=== PATIENT | female | born 1990 | race Caucasian/White ===

== ENCOUNTER 2016-07-16 20:43 | Inpatient (IN) ==
[2016-07-16] MEDS ORDERED: AMBIEN PO PRN (20:47)
[2016-07-16] MEDS ORDERED: KEFZOL 1 GM/D5W 50 ML IV PRN (20:47)
[2016-07-16] MEDS ORDERED: PEPCID PO PRN (20:47)
[2016-07-16] MEDS ORDERED: BRETHINE SUBQ PRN (20:47)
[2016-07-16] MEDS ORDERED: TYLENOL PO PRN (20:47)
[2016-07-16] MEDS ORDERED: STADOL IV PRN ×3 (20:47)
[2016-07-16] MEDS ORDERED: ZOFRAN IV PRN (20:47)
[2016-07-16] MEDS ORDERED: PEPCID IV PRN (20:47)
[2016-07-16] MEDS ORDERED: REGLAN PO ONE (20:47)
[2016-07-16] MEDS ORDERED: PEPCID PO ONE (20:47)
[2016-07-16] MEDS ORDERED: AMPICILLIN 2 GM/NS 100 ML IV ONE (21:30)
[2016-07-16] MEDS: LR 1,000 ML IV SCH (21:30)
[2016-07-16] MEDS ORDERED: CYTOTEC PO ONE (22:30)
[2016-07-16 22:43] LABS: URINE SOURCE VOIDED
[2016-07-16 22:43] LABS: MANUAL DIFF NEEDED? NO
[2016-07-16 22:51] LABS: BASO% 0.2 % (0.0-0.8); EOS# 0.19 X1000 (0.0-0.7); EOS% 1.6 % (0.0-10.0); HEMATOCRIT 37.9 % (37.0-47.0); HEMOGLOBIN 12.4 g/dL (12.0-16.0); IMM GRAN# 0.04 X1000 (0.0-0.04); IMM GRAN% 0.3 % (0.0-0.5); LYMPH# 1.78 X1000 (1.2-3.4); LYMPH% 15.3 % (20.5-51.1); MCH 27.7 PG (27-31); MCHC 32.7 g/dL (33-37); MCV 84.8 FL (81-99); MONO# 0.86 X1000 (0.11-0.59); MONO% 7.4 % (1.7-9.3); MPV 10.7 FL (7.4-10.4); NEUT% 75.2 % (42.2-75.2); PLT 229 X1000 (130-400); RBC 4.47 XMIL (4.2-5.4)
[2016-07-16] MEDS ORDERED: FENTANYL-BUPIV-NS 2 MCG-0.1% 200 ML EPIDURAL SCH (23:00)
[2016-07-16 23:03] LABS: BILIRUBIN URINE NEGATIVE (NEGATIVE); BLOOD URINE NEGATIVE (NEGATIVE); CLARITY CLEAR (CLEAR); COLOR YELLOW; GLUCOSE URINE NEGATIVE (NEGATIVE); LEUKOCYTES URINE 2+ (NEGATIVE); NITRITE URINE NEGATIVE (NEGATIVE); PH URINE 6.5; PROTEIN URINE NEGATIVE (NEGATIVE); SP GRAVITY URINE 1.005; UR AMPHETAMINES QUAL NONE DETECTED (NONE DETECT); UR BARBITUATES QUAL NONE DETECTED (NONE DETECT); UR BENZODIAZEPIN QUAL NONE DETECTED (NONE DETECT); UR CANNABINOIDS QUAL NONE DETECTED (NONE DETECT); UR COCAINE QUAL NONE DETECTED (NONE DETECT); UR MDMA QUAL NONE DETECTED (NONE DETECT); UR METHADONE QUAL NONE DETECTED (NONE DETECT); UR METHAMPHETAMINE QUAL NONE DETECTED (NONE DETECT); UR OPIATES QUAL NONE DETECTED (NONE DETECT); UR OXYCODONE QUAL NONE DETECTED (NONE DETECT); UR PCP QUAL NONE DETECTED (NONE DETECT); UR TCA QUAL NONE DETECTED (NONE DETECT); UROBILINOGEN URINE NORMAL
[2016-07-17] MEDS ORDERED: MARCAINE 0.25% PF INJ PRN (00:04)
[2016-07-17] MEDS: AMPICILLIN 1 GM/NS 50 ML IV SCH ×4 (02:17→14:34)
[2016-07-17] MEDS: CYTOTEC PO SCH ×2 (02:28→07:27)
[2016-07-17] MEDS ORDERED: PITOCIN 30 UNITS/LR 500 ML IV SCH (07:00)
[2016-07-17] MEDS: LR 1,000 ML IV SCH ×3 (07:04→12:40)
[2016-07-17] MEDS ORDERED: MARCAINE 0.25% PF INJ ONE (09:15)
[2016-07-17] MEDS ORDERED: CLINDAMYCIN 900 MG/NS 50 ML IV ONE (17:30)
[2016-07-17] MEDS ORDERED: XYLOCAINE-MPF 2% ONE (17:50)
[2016-07-17] MEDS ORDERED: FENTANYL ONE (17:50)
[2016-07-17] MEDS ORDERED: PITOCIN ONE (17:50)
[2016-07-17] MEDS ORDERED: DURAMORPH ONE (17:51)
[2016-07-17] MEDS ORDERED: HEMABATE ONE (17:51)
[2016-07-17] MEDS ORDERED: METHERGINE ONE (17:52)
[2016-07-17] MEDS ORDERED: BICITRA PO ONE (18:00)
[2016-07-17] MEDS ORDERED: REGLAN IV ONE (18:00)
[2016-07-17] MEDS ORDERED: PEPCID IV ONE (18:00)
[2016-07-17] MEDS ORDERED: PITOCIN 20 UNITS/LR 1,000 ML ONE (18:06)
--- NOTE | 2016-07-17 18:36 | HISTORY AND PHYSICAL ---
HISTORY: Shelby is a 25-year-old white female, 1, para 0, whose estimated gestational age is 40 and 4/7 weeks. She presents to Labor Delivery for routine induction. has been generally uncomplicated. The patient was admitted for postdates and was given Cytotec last evening. The patient has been undergoing social issues recently. She did have positive results for group B strep and has been given ampicillin. This morning, the cervix was 1 cm with 50% effacement. The patient progressed to 3-4 cm by early afternoon but station remained minus 2-3. The patient's cervix also thinned out but no change in station or dilation was noted. By 5:45 p.m., the cervix was 4, possibly 5 cm, again, with head remaining at a -2 to -3 station. Examination was suspicious for head being transverse and with possibility of deep transverse arrest being entertained. PAST MEDICAL HISTORY: None. PAST SURGICAL HISTORY: Breast reduction. ALLERGIES: Latex, nickel, Omnicef. MEDICATIONS: 1. vitamins. 2. Valtrex for history of HSV. SOCIAL HISTORY: Patient has a history of illicit drug use, is a nonsmoker. PHYSICAL EXAMINATION: GENERAL: White female in no apparent distress. VITAL SIGNS: Afebrile. Vital signs stable. CARDIOVASCULAR: Regular rate and rhythm. LUNGS: Clear to auscultation bilaterally. ABDOMEN: Soft and nontender. PELVIC: Exam as above. EXTREMITIES: 1+ edema. PLAN: Patient set up for primary section due to failure to progress with probably cephalopelvic disproportion and deep transverse arrest. Indications and risks of surgery extensively reviewed with the patient and her family. Informed consent obtained. cc: Kulwant Ghosh MD
[2016-07-17] MEDS ORDERED: PITOCIN 20 UNITS/LR 1,000 ML IV ONE (19:28)
[2016-07-17] MEDS ORDERED: HYDROXYZINE PO PRN (19:28)
[2016-07-17] MEDS ORDERED: DEMEROL PO PRN ×2 (19:28)
[2016-07-17] MEDS ORDERED: M-M-R II VACCINE SUBQ ONE (19:28)
[2016-07-17] MEDS ORDERED: DEMEROL IM PRN (19:28)
[2016-07-17] MEDS ORDERED: BOOSTRIX VACCINE IM ONE (19:28)
[2016-07-17] MEDS ORDERED: PITOCIN IM PRN (19:28)
[2016-07-17] MEDS ORDERED: NORCO-10 PO PRN (19:28)
[2016-07-17] MEDS ORDERED: AMBIEN PO PRN (19:28)
[2016-07-17] MEDS ORDERED: HYDROXYZINE IM PRN (19:28)
[2016-07-17] MEDS ORDERED: DULCOLAX PR PRN (19:28)
[2016-07-17] MEDS ORDERED: PHENERGAN IM PRN (19:28)
[2016-07-17] MEDS ORDERED: CYTOTEC PO PRN (19:28)
[2016-07-17] MEDS ORDERED: VERSED ONE (19:31)
[2016-07-17] MEDS ORDERED: KETALAR ONE (19:31)
[2016-07-17] MEDS ORDERED: DILAUDID IV PRN (19:43)
[2016-07-17] MEDS ORDERED: ZOFRAN ODT PO PRN (19:43)
[2016-07-17] MEDS ORDERED: NARCAN INJ PRN (19:43)
[2016-07-17] MEDS ORDERED: BENADRYL IV PRN (19:43)
[2016-07-17] MEDS ORDERED: ZOFRAN IV PRN ×2 (19:43)
[2016-07-17] MEDS: TORADOL IV SCH (20:09)
[2016-07-17] MEDS: MYLICON PO SCH (20:42)
[2016-07-17] MEDS: PERICOLACE PO SCH (20:43)
[2016-07-17] MEDS: PERCOCET-10 PO PRN (23:52)
[2016-07-18] MEDS: TORADOL IV SCH ×2 (01:55→07:59)
[2016-07-18] MEDS: PITOCIN 10 UNITS/LR 1,000 ML IV SCH ×2 (01:55→06:11)
[2016-07-18] MEDS: PERCOCET-10 PO PRN ×4 (06:03→20:50)
[2016-07-18 06:31] LABS: MANUAL DIFF NEEDED? NO
[2016-07-18 06:51] LABS: BASO% 0.1 % (0.0-0.8); EOS# 0.11 X1000 (0.0-0.7); EOS% 0.8 % (0.0-10.0); HEMATOCRIT 30.4 % (37.0-47.0); HEMOGLOBIN 9.9 g/dL (12.0-16.0); IMM GRAN# 0.03 X1000 (0.0-0.04); IMM GRAN% 0.2 % (0.0-0.5); LYMPH# 1.43 X1000 (1.2-3.4); LYMPH% 10.1 % (20.5-51.1); MCH 28.1 PG (27-31); MCHC 32.6 g/dL (33-37); MCV 86.4 FL (81-99); MONO# 0.72 X1000 (0.11-0.59); MONO% 5.1 % (1.7-9.3); MPV 10.7 FL (7.4-10.4); NEUT% 83.7 % (42.2-75.2); PLT 187 X1000 (130-400); RBC 3.52 XMIL (4.2-5.4)
--- NOTE | 2016-07-18 07:25 | OPERATIVE NOTE ---
PROCEDURE DATE: 07/17/2016 PREOPERATIVE DIAGNOSES: 1. Intrauterine at 40 and 4/7 weeks. 2. Failure to progress with cephalopelvic disproportion. Deep transverse arrest. POSTOPERATIVE DIAGNOSES: 1. Intrauterine at 40 and 4/7 weeks. 2. Failure to progress with cephalopelvic disproportion. Deep transverse arrest. PROCEDURES: Primary low transverse section. SURGEON: Kulwant Ghosh M.D. ANESTHESIA: Epidural per Dr. De Los Santos. ESTIMATED BLOOD LOSS: 900 mL. DRAINS: Fields catheter. FINDINGS: A male infant was delivered at 18:32 in the left occiput transverse position weighing 8 pounds 6 ounces. Apgars of 9 and 9 at 1 and 5 minutes respectively. DESCRIPTION OF PROCEDURE: The patient was taken to the operating room where she was prepped and draped in the usual fashion after epidural was re-bolused and adequate anesthetic level was obtained. A time-out was performed with everyone in the room in agreement as to stated procedure. A Pfannenstiel incision was carried out with a scalpel to underlying fascia. The fascia was nicked in midline and Martin scissors. The fascia was taken down off underlying rectus muscles with Tika clamps and Martin scissors. The peritoneal blind extended rectal and direct visualization with Martin scissors bladder blade was placed, and the peritoneal reflection of the bladder protected the muscle scissors uterus scored in low transverse fashion. Amniotic membranes were bluntly ruptured and clear fluid was noted. As noted above. head was a left occiput transverse position and was somewhat difficult to elevate from maternal pelvis once elevated however torso was easily delivered infant placed lateral cortical and cut baby bulb suctioned and handed to waiting pediatric team for further assessment. The placenta was delivered and overall good uterine tone was noted. Once the uterus was externalized uterine incision was closed with #1 chromic in a running locking fashion followed by #1 chromic in an imbricating fashion. I did have to place numbered additional #1 chromic suture in a [id number] fashion to achieve maximal hemostasis on the uterus was then returned about parenting cavity with copious irrigation normal saline was used and overall good hemostasis was noted. I did patient Kiran placed a large piece of Gelfoam over the is hysterotomy incision for additional hemostasis. Again all counts were correct. The peritoneum was closed with #1 chromic in a running fashion. The subcutaneous fat was copiously irrigated. Hemostasis with cautery the fascia was closed with #1 Vicryl in a running fashion starting in the midline. The subcutaneous fat was cleared closed with 3-0 Polysorb in a running fashion. The skin was closed with 3-0 Biosyn in a subcuticular fashion. Swimmy headed. The patient has an umbilical acute.
[2016-07-18] MEDS: MYLICON PO SCH ×5 (07:59→20:50)
[2016-07-18] MEDS: MOTRIN PO PRN (19:09)
[2016-07-18] MEDS: MYLICON PO PRN (19:11)
[2016-07-18] MEDS ORDERED: LR 1,000 ML IV SCH (19:28)
[2016-07-18] MEDS: PERICOLACE PO SCH (20:50)
[2016-07-19] MEDS: PERCOCET-10 PO PRN ×2 (08:10→12:10)
[2016-07-19] MEDS: MOTRIN PO PRN ×3 (08:10→22:00)
[2016-07-19] MEDS: MYLICON PO PRN ×2 (12:15→16:41)
[2016-07-19] MEDS: PERCOCET-5 PO PRN (16:30)
[2016-07-19] MEDS: MYLICON PO SCH ×3 (16:51→22:20)
[2016-07-19] MEDS: PERICOLACE PO SCH (22:00)
[2016-07-19] MEDS: NORCO-5 PO PRN (22:10)
[2016-07-20] MEDS: NORCO-5 PO PRN (03:21)
[2016-07-20] MEDS: PERCOCET-10 PO PRN (07:42)
[2016-07-20] MEDS: MOTRIN PO PRN (07:42)
[2016-07-20 11:59] VITALS: BP 132/69
[2016-07-20] MEDS: MYLICON PO SCH (12:18)
[2016-07-20] MEDS: PERCOCET-5 PO PRN (12:18)
== END 2016-07-20 14:20 | disposition home or self-care (01) ==
LOC: P.LD 20:43 → EEVIPCON 20:43
PROVIDERS: ADMIT Obstetrics & Gynecology; ATTEND Obstetrics & Gynecology